=== PATIENT | male | born 1980 | race Hispanic/Latino ===

== ENCOUNTER 2018-02-19 08:35 | Day surgery (SDC) | payer OTHER ==
[2018-02-18 15:49] VITALS: BP 142/98
[2018-02-18 15:56] LABS: BASOPHILS % (AUTO) 0.7 % (0.0-5.0); EOSINOPHILS % (AUTO) 1.1 % (0.0-8.0); HEMATOCRIT 44.2 % (42-54); LYMPHOCYTES % (AUTO) 27.1 % (21.0-51.0); MEAN CORPUSCULAR HEMOGLOBIN 28.5 pg (27.0-33.0); MEAN CORPUSCULAR HGB CONC 35.8 g/dL (32.0-36.0); MEAN CORPUSCULAR VOLUME 79.5 fL (79-99); MONOCYTES % (AUTO) 5.7 % (3.0-13.0); NEUTROPHILS % (AUTO) 65.4 % (40.0-77.0); NUCLEATED RED BLOOD CELLS 0.1 % (0.0-0.19); PLATELET COUNT (AUTO) 208 K/uL (130-400); RED BLOOD CELL COUNT(AUTO) 5.55 MIL/uL (4.50-6.20); RED CELL DISTRIBUTION WIDTH 13.2 % (11.0-15.5); WHITE BLOOD COUNT (AUTO) 7.2 K/uL (4.8-10.8)
[2018-02-18 16:12] LABS: CREATININE 1.2 mg/dL (0.5-1.5); POTASSIUM 3.7 mmol/L (3.5-5.1)
[2018-02-19] VITALS (17 sets, daily range): BP systolic 128–162; BP diastolic 64–95
[~2018-02-19] VITALS: Ht 172.7 cm; Wt 100.3 kg
[~2018-02-19 08:35] MED LIST: CEFAZOLIN 3GM /D5W 100ML 100 ML IV SCH
[2018-02-19] MEDS ORDERED: LACTATED RINGERS 1000ML 1,000 ML IV ONE (09:17)
[2018-02-19] MEDS ORDERED: CEFAZOLIN SODIUM 1 GM VIAL ONE (10:45)
[2018-02-19] MEDS ORDERED: DEXAMETHASONE SOD PHOSPHATE 10MG/ML 1ML VIAL ONE (11:28)
[2018-02-19] MEDS ORDERED: PROPOFOL 10 MG/ML 20ML VIAL IV ONE (11:29)
[2018-02-19] MEDS ORDERED: MIDAZOLAM HCL 1 MG/ML 2ML VIAL ONE (11:29)
[2018-02-19] MEDS ORDERED: GLYCOPYRROLATE 0.2 MG/ML 5 ML VIAL ONE (11:29)
[2018-02-19] MEDS ORDERED: LIDOCAINE PF 2% 5ML ABBOJECT ONE (11:29)
[2018-02-19] MEDS ORDERED: FENTANYL CITRATE PF 50 MCG/1 ML 2ML VIAL ONE (12:04)
[2018-02-19] MEDS ORDERED: OCTYL 2-CYANOACRYLATE 1 EACH TP ONE (12:43)
[2018-02-19] MEDS ORDERED: ROPIVACAINE 0.5% 5MG/ML 30ML IJ ONE (12:46)
[2018-02-19] MEDS ORDERED: MEPERIDINE-PF 25 MG/ML SYG ONE (13:41)
[2018-02-19] MEDS ORDERED: HYDR-309 PO (14:44)
[2018-02-19] MEDS ORDERED: NAPR-1192 PO (14:45)
[2018-02-19] MEDS ORDERED: CEPH500B PO (14:46)
== END 2018-02-19 15:03 | disposition home or self-care (01) ==
LOC: DAH 08:35
PROVIDERS: ATTEND Orthopaedic Surgery
DX: M25.811 Other specified joint disorders, right shoulder (principal); M19.011 Primary osteoarthritis, right shoulder; F41.9 Anxiety disorder, unspecified; F32.9 Major depressive disorder, single episode, unspecified; F43.10 Post-traumatic stress disorder, unspecified; G89.29 Other chronic pain; Z79.899 Other long term (current) drug therapy; Z79.82 Long term (current) use of aspirin
CPT/HCPCS: 29824; 36415; 80048; 85025; A4565; A4649 ×3; A4930 ×2; A6204; J0690; J1100; J2001; J2175; J2250; J2704; J2795; J3010; J3490; J7030; J7120

== ENCOUNTER 2018-08-12 06:18 | Day surgery (SDC) | payer OTHER ==
[2018-08-11 15:04] LABS: BASOPHILS % (AUTO) 0.6 % (0.0-5.0); EOSINOPHILS % (AUTO) 0.8 % (0.0-8.0); LYMPHOCYTES % (AUTO) 27.4 % (21.0-51.0); MEAN CORPUSCULAR HGB CONC 34.4 g/dL (32.0-36.0); MEAN CORPUSCULAR VOLUME 81.5 fL (79-99); MONOCYTES % (AUTO) 5.9 % (3.0-13.0); NEUTROPHILS % (AUTO) 65.3 % (40.0-77.0); NUCLEATED RED BLOOD CELLS 0.1 % (0.0-0.19); PLATELET COUNT (AUTO) 178 K/uL (130-400); RED CELL DISTRIBUTION WIDTH 12.8 % (11.0-15.5); WHITE BLOOD COUNT (AUTO) 8.9 K/uL (4.8-10.8)
[2018-08-11 15:12] LABS: CREATININE 1.2 mg/dL (0.5-1.5); POTASSIUM 3.7 mmol/L (3.5-5.1)
[2018-08-11 15:15] VITALS: BP 153/93
[~2018-08-12] VITALS: Ht 172.7 cm; Wt 101.2 kg
[2018-08-12] VITALS (13 sets, daily range): BP systolic 129–145; BP diastolic 76–102
[2018-08-12] MEDS ORDERED: CEFAZOLIN SODIUM 1 GM VIAL ONE (07:47)
[2018-08-12] MEDS ORDERED: LACTATED RINGERS 1000ML 1,000 ML IV ONE (07:47)
[2018-08-12] MEDS ORDERED: CEFAZOLIN 3GM /D5W 100ML 100 ML IV PRN (08:00)
[2018-08-12] MEDS ORDERED: ONDANSETRON HCL 4 MG/2 ML VIAL ONE (09:10)
[2018-08-12] MEDS ORDERED: NEOSTIGMINE 5MG/5ML SYR IV ONE (09:10)
[2018-08-12] MEDS ORDERED: PROPOFOL 10 MG/ML 20ML VIAL IV ONE (09:10)
[2018-08-12] MEDS ORDERED: MIDAZOLAM HCL 1 MG/ML 2ML VIAL ONE (09:10)
[2018-08-12] MEDS ORDERED: LIDOCAINE PF 2% 5ML ABBOJECT ONE (09:10)
[2018-08-12] MEDS ORDERED: SUCCINYLCHOLINE 200MG/10ML SYR ONE (09:10)
[2018-08-12] MEDS ORDERED: ROCURONIUM 10MG/1ML SYR 10 MG/ML ML ONE (09:11)
[2018-08-12] MEDS ORDERED: FENTANYL CITRATE PF 50 MCG/1 ML 2ML VIAL ONE (09:11)
[2018-08-12] MEDS ORDERED: CEPH500B PO (10:16)
[2018-08-12] MEDS ORDERED: TYL3 PO (10:16)
[2018-08-12] MEDS ORDERED: NAPR-1192 PO (10:16)
[2018-08-12] MEDS ORDERED: KETOROLAC TROMETHAMINE 30MG/ML ONE (10:42)
== END 2018-08-12 12:06 | disposition home or self-care (01) ==
LOC: DAH 06:18
PROVIDERS: ATTEND Orthopaedic Surgery
DX: S83.242A Other tear of medial meniscus, current injury, left knee, initial encounter (principal); F41.8 Other specified anxiety disorders; G47.33 Obstructive sleep apnea (adult) (pediatric); F43.10 Post-traumatic stress disorder, unspecified; Z79.82 Long term (current) use of aspirin; Z79.899 Other long term (current) drug therapy; Z98.52 Vasectomy status; Z98.890 Other specified postprocedural states; X58.XXXA Exposure to other specified factors, initial encounter; Y93.89 Activity, other specified; Y92.89 Other specified places as the place of occurrence of the external cause; Y99.8 Other external cause status; Z82.49 Family history of ischemic heart disease and other diseases of the circulatory system
CPT/HCPCS: 29881; 36415; 80048; 85025; A4218; A4606; A4649 ×2; A4930 ×2; A6223; J0330; J0690; J1885; J2001; J2250; J2405; J2704; J2710; J3010; J7120